=== PATIENT | female | born 1955 | race Caucasian/White ===

== ENCOUNTER → 2020-06-11 | Outpatient (CLI) | payer MEDICARE ==
[2020-06-01 11:37] VITALS: BP 160/73
[~2020-06-11] MED LIST: NAPR-514 PO
--- NOTE | 2020-06-11 14:30 | CARD ---
MR#: [id number] Date of Study: 06/11/2020 Ordering Physician: VERONIKA QUINTANILLA, Referring Physician: VERONIKA QUINTANILLA Tech: Kathryn Payton ROJELIO APPROVED REPORT EXAM: Two-dimensional and M-mode echocardiogram with Doppler and color Doppler. Other Information Quality : AverageHR: 57bpm Rhythm : NSR INDICATION CVA/TIA Echo Enhancing Agent Indication: Rule Out Septal Defect Agent/Amount Used: Agitated Saline 7mL RISK FACTORS Hypertension Obesity 2D DIMENSIONS RVDd3.2 (2.9-3.5cm)Left Atrium(2D)3.1 (1.6-4.0cm) IVSd0.9 (0.7-1.1cm)Aortic Root(2D)3.5 (2.0-3.7cm) LVDd4.0 (3.9-5.9cm)LVOT Diameter2.0 (1.8-2.4cm) PWd1.0 (0.7-1.1cm)LVDs3.4 (2.5-4.0cm) FS (%) 15.6 %SV23.7 ml LVEF(%)33.4 (>50%) Aortic Valve AoV Peak Ivan.110.7cm/sAoV VTI27.9cm AO Peak GR.4.9mmHgLVOT Peak Ivan.91.1cm/s AO Mean GR.3mmHgAVA (VMAX)2.59cm2 Mitral Valve MV E Nfkceiza27.8cm/sMV DECEL [id number] MV A Yqcgljwj77.9cm/sE/A Ratio0.5 Pulmonary Valve PV Peak Opqetgyt12.3cm/s Tricuspid Valve TR P. Zjauhbds303bz/sTR Peak Gr.20mmHg Pulmonary Vein S1 Tulyvilw50.3cm/sD2 Npcvjwte57.1cm/s PVa [id number] LEFT VENTRICLE The left ventricle is normal size. There is normal left ventricular wall thickness. The left ventricu lar systolic function is normal. The ejection fraction is 55-60%. There is normal LV segmental wall m otion. Transmitral Doppler flow pattern is Grade I-abnormal relaxation pattern. RIGHT VENTRICLE The right ventricle is normal size. There is normal right ventricular wall thickness. The right ventr icular systolic function is normal. ATRIA The left atrium size is normal. The right atrium size is normal. Bubble study positive for interatria l shunt. AORTIC VALVE The aortic valve is normal in structure and function. Doppler and Color Flow revealed no significant aortic regurgitation. There is no significant aortic valvular stenosis. MITRAL VALVE The mitral valve is normal in structure and function. There is no evidence of mitral valve prolapse. There is no mitral valve stenosis. Doppler and Color Flow revealed no mitral valve regurgitation note d. TRICUSPID VALVE The tricuspid valve is normal in structure and function. Doppler and Color Flow revealed trace tricus pid regurgitation. Estimated PAP 24 mmHg. There is no tricuspid valve stenosis. PULMONIC VALVE The pulmonary valve is normal in structure and function. Doppler and Color Flow revealed trace pulmon ic valvular regurgitation. GREAT VESSELS The aortic root is normal in size. The ascending aorta is normal in size. The IVC is normal in size a nd collapses >50% with inspiration. PERICARDIAL EFFUSION There is no evidence of significant pericardial effusion. Critical Notification Critical Value: No <Conclusion> The left ventricular systolic function is normal. The ejection fraction is 55-60%. There is normal LV segmental wall motion. Transmitral Doppler flow pattern is Grade I-abnormal relaxation pattern. Trace tricuspid regurgitation. Estimated PAP 24 mmHg. There is no evidence of significant pericardial effusion. Bubble study positive for interatrial shunt. Signed by : Veronika Quintanilla, Electronically Approved : 06/11/2020 14:30:21
== END ==
LOC: ECHO 10:44
PROVIDERS: ATTEND Internal Medicine Cardiovascular Disease
DX: I63.9 Cerebral infarction, unspecified (principal)
CPT/HCPCS: 93306